=== PATIENT | female | born 1995 | race African-American/Black ===

== ENCOUNTER 2019-05-21 11:36 | Inpatient (IN) | payer OTHER ==
[~2019-05-21] VITALS: Ht 171.4 cm; Wt 106.5 kg
[2019-05-21] MEDS ORDERED: OXYTOCIN 30U/ 0.9% NaCL 500ML 500 ML IV ONE (19:55)
[2019-05-21] MEDS ORDERED: D5%-LACTATED RINGERS 1,000 ML IV SCH (19:55)
[2019-05-21] MEDS ORDERED: SODIUM CHLORIDE FLUSH 10ML SYR IVF PRN (20:00)
[2019-05-21] MEDS ORDERED: FENTANYL PF 100 MCG/2ML IV PRN (20:00)
[2019-05-21] MEDS ORDERED: SODIUM CITRATE/CITRIC ACID 30 ML UDC PO PRN (20:00)
[2019-05-21] MEDS ORDERED: TERBUTALINE 1 MG/ML, 1ML SQ PRN (20:00)
[2019-05-21] MEDS ORDERED: ONDANSETRON 2MG/ML, 2ML IVPush PRN (20:00)
[2019-05-21] MEDS ORDERED: TERBUTALINE 1 MG/ML, 1ML IVPush PRN (20:00)
[2019-05-21] MEDS ORDERED: ALUMINUM/MAG/SIMETHICONE 30 ML UDC PO PRN (20:00)
[2019-05-21] MEDS ORDERED: FENTANYL PF 100 MCG/2ML IVPush PRN (20:00)
[2019-05-21 20:15] VITALS: BP 134/65
[2019-05-21 20:22] LABS: BASOPHILS # (AUTO) 0.04 x10^3/uL (0-0.1); BASOPHILS % (AUTO) 0 % (0-1); EOSINOPHILS # (AUTO) 0.06 x10^3/uL (0-0.4); EOSINOPHILS % (AUTO) 1 % (1-7); LYMPHOCYTES # (AUTO) 2.03 x10^3/uL (1-3.4); LYMPHOCYTES % (AUTO) 18 % (22-44); MD NO; MEAN CORPUSCULAR HEMOGLOBIN 29.7 pg (27.0-34.8); MEAN CORPUSCULAR HGB CONC 32.5 g/dL (32.4-35.8); MEAN CORPUSCULAR VOLUME 91.4 fL (80-100); MEAN PLATELET VOLUME 8.2 fL (7.4-10.4); MONOCYTES # (AUTO) 0.96 x10^3/uL (0.2-0.8); MONOCYTES % (AUTO) 8 % (2-9); NEUTROPHILS # (AUTO) 8.45 x10^3/uL (1.8-6.8); NEUTROPHILS % (AUTO) 73 % (42-75); PLATELET COUNT 310 x10^3/uL (130-400); RED BLOOD COUNT 4.07 x10^6/uL (3.82-5.3); RED CELL DISTRIBUTION WIDTH 14.3 % (9.6-15.2)
[2019-05-21] MEDS: LACTATED RINGERS 1,000 ML IV SCH (20:30)
[2019-05-21] MEDS ORDERED: MISOPROSTOL 25 MCG TABLET ONE (21:39)
[2019-05-21] MEDS: MISOPROSTOL 25 MCG TABLET VG PRN (21:51)
[2019-05-21] MEDS ORDERED: NEWBORN KIT ONE (23:57)
[2019-05-21] MEDS ORDERED: OXYTOCIN 30U/ 0.9% NaCL 500ML 500 ML ONE (23:58)
[2019-05-22] MEDS ORDERED: MISOPROSTOL 25 MCG TABLET ONE ×2 (01:55→06:25)
[2019-05-22] MEDS: MISOPROSTOL 25 MCG TABLET VG PRN ×2 (02:05→06:34)
[2019-05-22] MEDS: LACTATED RINGERS 1,000 ML IV SCH (03:08)
[2019-05-22] MEDS ORDERED: FENTANYL PF 100 MCG/2ML ONE (12:40)
[2019-05-22] MEDS ORDERED: OXYTOCIN 30U/ 0.9% NaCL 500ML 500 ML IV PRN (17:21)
[2019-05-22] MEDS ORDERED: LACTATED RINGERS 1,000 ML IV SCH (19:55)
[2019-05-22] MEDS ORDERED: FENTANYL/BUPIV./NS/PF 250 ML EPIDCONT SCH (19:55)
[2019-05-22] MEDS ORDERED: LACTATED RINGERS 1,000 ML IVBOLUS PRN (20:00)
[2019-05-22] MEDS ORDERED: EPHEDRINE 50 MG/ML, 1ML IVPush PRN (20:00)
[2019-05-22 20:15] VITALS: BP 120/68
[2019-05-22] MEDS ORDERED: FENTANYL PF 500 MCG, BUPIVACAINE/PF 0.5%, 30ML 62.5 ML in SODIUM CHLORIDE 0.9% 177.5 ML EPIDCONT SCH (20:30)
== END 2019-05-23 06:47 | disposition home or self-care (01) | DRG 833 ==
LOC: LDIP 19:52
PROVIDERS: ADMIT Student in an Organized Health Care Education/Training Program; ATTEND Student in an Organized Health Care Education/Training Program
DX: O99.513 Diseases of the respiratory system complicating pregnancy, third trimester (principal); J45.909 Unspecified asthma, uncomplicated; Z3A.39 39 weeks gestation of pregnancy; Z82.49 Family history of ischemic heart disease and other diseases of the circulatory system
CPT/HCPCS: 36415; 85025; 86850; 86900; G0378; J3010; J7120